=== PATIENT | female | born 1985 | race Caucasian/White ===

== ENCOUNTER 2016-11-14 23:59 | Inpatient (IN) | payer OTHER ==
[2016-11-15] MEDS ORDERED: Sodium Chloride 0.9% 10 ML Syringe FLUSH PRN ×2 (00:06→00:09)
[2016-11-15] MEDS ORDERED: Ampicillin 2 GM in Sodium Chloride 0.9% 100 ML IV ONE (00:06)
[2016-11-15] MEDS ORDERED: Lactated Ringers 1,000 ML IV SCH (00:15)
[2016-11-15] MEDS: Scopolamine 1.5 MG Transdermal Patch TOP ONE ×2 (01:43→01:53)
[2016-11-15] MEDS ORDERED: ePHEDrine 50 MG/ML SDV ONE (01:56)
[2016-11-15] MEDS ORDERED: Morphine PF 10 MG/10 ML SDV ONE (01:56)
[2016-11-15] MEDS ORDERED: fentaNYL 100 MCG/2 ML SDV ITHECAL ONE (01:56)
[2016-11-15] MEDS ORDERED: Oxytocin 10 Units/1 ML SDV IM ONE (02:52)
[2016-11-15] MEDS ORDERED: Naltrexone 50 MG Tab PO PRN (03:45)
[2016-11-15] MEDS ORDERED: Promethazine 25 MG/ML SDV IV PRN (03:45)
[2016-11-15] MEDS ORDERED: Metoclopramide 10 MG/2 ML SDV IVPUSH PRN (03:45)
[2016-11-15] MEDS ORDERED: Scopolamine 1.5 MG Transdermal Patch TOP SCH (03:45)
[2016-11-15] MEDS ORDERED: ePHEDrine 50 MG/ML SDV IVPUSH PRN (03:45)
[2016-11-15] MEDS ORDERED: hydrOXYzine HCl 50 MG/ML SDV IM PRN ×2 (03:45)
[2016-11-15] MEDS ORDERED: Nalbuphine 10 MG/1 ML Vial IVPUSH PRN (03:45)
[2016-11-15] MEDS ORDERED: Naloxone 0.4 MG in Sodium Chloride 0.9% 100 ML IV PRN (03:45)
[2016-11-15] MEDS ORDERED: Naloxone 0.4 MG/ML SDV IVPUSH PRN ×2 (03:45)
[2016-11-15] MEDS ORDERED: diphenhydrAMINE 50 MG/ML SDV IVPUSH PRN ×2 (03:45)
[2016-11-15] MEDS ORDERED: Naltrexone 50 MG Tab PO SCH (03:45)
[2016-11-15] MEDS ORDERED: Ondansetron 4 MG/2 ML SDV IVPUSH PRN (03:47)
[2016-11-15] MEDS ORDERED: Naltrexone 50 MG Tab ONE (03:48)
[2016-11-15] MEDS: Ibuprofen 600 MG Tab PO PRN ×2 (03:58→18:29)
[2016-11-15] MEDS: Levothyroxine 125 MCG Tab PO SCH (09:30)
[2016-11-16] MEDS: Levothyroxine 125 MCG Tab PO SCH (06:14)
[2016-11-16] MEDS: Ibuprofen 600 MG Tab PO PRN (09:55)
[2016-11-16 10:32] VITALS: BP 112/80
--- NOTE | 2016-11-16 11:28 | DISCH ---
DISCHARGE DATE: 11/16/2016 HOSPITAL COURSE: Falguni Dumont is a 30-year-old 4, para 4, female, 1 day . Up, ambulating, and doing well. Minimal perineal discomfort. Cramps and discomfort with nursing only. Not lightheaded, not woozy, and without complaint. PHYSICAL EXAMINATION: U-2 tone satisfactory, perineum intact. ASSESSMENT: day #1, no problem. PLAN: Discharge home with lengthy instructions, vitamins, adequate nutrition and well-being, ibuprofen or Tylenol for pain. Six-week followup. /[id number] ADI/MATT JIMENEZ
--- NOTE | 2016-11-18 10:32 | DEL ---
DATE OF DELIVERY: 11/15/2016 HISTORY OF PRESENT ILLNESS: Falguni Dumont is a 30-year-old, 4, para 3-0-0-3, female, EDC of 11/24/2016, who was admitted to [facility] with spontaneous rupture of membranes about 2200 hours, on the evening of admission. Clear fluid. Baby has been active. Contractions were present prior to onset of ruptured membranes. Of note, group B rectovaginal culture positive per testing. It has otherwise been an uneventful satisfactory with adequate dates. On admission, she was found to be posterior cervix, thought to be 2 cm, early active labor, spontaneous rupture of membranes were obvious, and satisfactory well being, category 1 tracing. Intravenous ampicillin was started per protocol, 2 grams IV, fluids were maintained. Contractions began in earnest. At 4 to 5 cm, she was found to be in active labor, requested regional anesthesia. Anesthesia provided an intrathecal with good analgesic benefit. She quickly went to complete, and I was summoned to attend. Over the course of about half an hour, second stage of labor progressed well, and she was found to be in ROBYN presentation. Maternal effort was limited by intrathecal, but improved over the course of about 10 quality pushes. Delivered in ROBYN presentation without difficulty. Nares and oropharynx were cleared. Nuchal cord was present and reduced without difficulty. The child was delivered without incident or shoulder dystocia, placed on mom's tummy for warming and resuscitation. Good tone, good color, good activity, and good cry. Cord was held until no palpable pulses were noted. It was clamped by dad in attendance. Cord blood was stripped toward the baby. Three-cord vessel was identified, there was spontaneous placental separation, three-cord vessel was intact. Uterine tone was maintained by massage and 10 units of intramuscular Pitocin. The perineum was inspected. There were no perineal tears and no periurethral or suzy-clitoral tears. Bleeding was minimal, probably 75 mL. The patient tolerated the procedure well. ASSESSMENT: 1. Term intrauterine . 2. Normal spontaneous vaginal delivery. 3. Intrathecal analgesia. 4. A 7 pounds 6 ounces male , scores 9 and 9. 5. No perineal tear or abrasions or lacerations. 6. Planned nursing. PLAN: Routine course. Expect no problems or concerns. /[id number] ADI/MATT JIMENEZ
== END 2016-11-16 11:15 | disposition home or self-care (01) | DRG 775 ==
LOC: FB.OBCHECK 23:59 → FB.OB 23:59 → FB.OBCHECK 11-15 → FB.OB 11-15 → UNDOADMIN 11-15 → FB.OB 11-15 → FB.OBCHECK 11-15 02:45 → FB.OB 11-15 02:46 → UNDOADMIN 11-15 02:46 → UNDODISIN 11-16 11:15
PROVIDERS: ADMIT Family Medicine; ATTEND Family Medicine
PROC: 10E0XZZ Delivery of Products of Conception, External Approach (ICD-10-PCS; principal; 2016-11-15)
PROC: 00HU33Z Insertion of Infusion Device into Spinal Canal, Percutaneous Approach (ICD-10-PCS; 2016-11-15)
DX: O69.81X0 Labor and delivery complicated by cord around neck, without compression, not applicable or unspecified (principal); O99.824 Streptococcus B carrier state complicating childbirth; Z3A.38 38 weeks gestation of pregnancy; Z37.0 Single live birth
CPT/HCPCS: A9270-GY; J0290; J2270; J2590; J3010; J7030; J7050; J7120

== ENCOUNTER 2023-08-19 15:03 | Inpatient (IN) | payer OTHER ==
[2023-08-19] MEDS ORDERED: Polyethylene Glycol 3350 Powder 17 GM Packet PO PRN (15:38)
[2023-08-19] MEDS ORDERED: Ondansetron 4 MG Tab.DIS PO PRN (15:38)
[2023-08-19] MEDS ORDERED: Morphine 2 MG/ML SYRINGE IVPUSH PRN (15:38)
[2023-08-19] MEDS: Sodium Chloride 0.9% 1,000 ML IV SCH (16:15)
[2023-08-19] MEDS: Sodium Chloride 0.9% 10 ML Syringe FLUSH PRN (16:15)
[2023-08-19] MEDS: Ketorolac 30 MG/ML SDV IVPUSH PRN (16:21)
[2023-08-19] MEDS: cefTRIAXone 1 GM Vial IVPUSH SCH (16:28)
[2023-08-19] MEDS: Acetaminophen 325 MG Tab PO PRN (21:05)
[2023-08-20 06:17] LABS: BASOPHILS PERCENT AUTO 0.4 % (0.2-1.5); EOSINOPHILS PERCENT AUTO 0.1 % (0.6-8.1); HEMATOCRIT 36.3 % (34.2-48.2); HEMOGLOBIN 12.2 g/dL (11.4-15.5); LYMPHOCYTES ABSOLUTE AUTO 0.8 x10-3/uL (1.0-4.4); LYMPHOCYTES PERCENT AUTO 10.9 % (18.4-52.1); MEAN CORPUSCULAR HEMOGLOBIN 29.9 pg (23.9-33.9); MEAN CORPUSCULAR HGB CONC 33.5 g/dL (31.9-34.8); MEAN CORPUSCULAR VOLUME 89.4 fL (76.7-100.5); MEAN PLATELET VOLUME 8.7 fL (7.1-12.4); MONOCYTES ABSOLUTE AUTO 0.5 x10-3/uL (0.3-1.0); MONOCYTES PERCENT AUTO 7.1 % (4.4-15.7); NEUTROPHILS ABSOLUTE AUTO 5.8 x10-3/uL (1.5-6.3); NEUTROPHILS PERCENT AUTO 81.5 % (30.8-76.2); PLATELET COUNT,PLT 136 x10(3)uL (151-488); RED BLOOD CELL COUNT 4.06 x10(6)uL (3.60-5.20); RED CELL DISTRIBUTION WIDTH 13.7 % (12.3-16.5); WHITE BLOOD CELL COUNT,WBC 7.1 x10-3/uL (3.0-10.3)
[2023-08-20 06:27] LABS: A/G RATIO 0.8; ALANINE AMINOTRANSFERASE,ALT 15 U/L (12-36); ALBUMIN 2.8 g/dL (3.5-5.2); ALKALINE PHOSPHATASE 68 IU/L (56-112); ASPARTATE AMNIOTRANSFERASE,AST 10 IU/L (5-25); BILIRUBIN TOTAL 0.4 mg/dL (0.1-1.3); BLOOD UREA NITROGEN,BUN 10 mg/dL (7-18); CALCIUM 8.1 mg/dL (8.6-10.2); CARBON DIOXIDE,CO2 22 mmol/L (21-32); CHLORIDE,CL 104 mmol/L (100-110); EST CRCL DRUG DOSING (CG) 69.98 mL/min; ESTIMATED GFR 75 mL/min (>60); GLUCOSE RANDOM 96 mg/dL (80-116); MAGNESIUM 2.1 mg/dL (1.8-2.5); POTASSIUM,K 3.8 mmol/L (3.5-5.3); PROTEIN TOTAL,TP 6.5 g/dL (6.0-8.0); SODIUM,NA 136 mmol/L (135-145)
[2023-08-20] MEDS: Levothyroxine 100 MCG Tab PO SCH (08:37)
[2023-08-20] MEDS: Sodium Chloride 0.9% 1,000 ML IV ONE (08:39)
[2023-08-20] MEDS: cefTRIAXone 1 GM Vial IVPUSH SCH (12:24)
[2023-08-20 14:02] VITALS: BP 114/84; PULSE 110
[2023-08-21] MEDS ORDERED: Levothyroxine 100 MCG Tab PO SCH (07:30)
== END 2023-08-20 14:04 | disposition home or self-care (01) | DRG 690 ==
LOC: FB.MS 15:38
PROVIDERS: ADMIT Family Medicine; ATTEND Family Medicine
DX: N12 Tubulo-interstitial nephritis, not specified as acute or chronic (principal); N17.9 Acute kidney failure, unspecified; E03.9 Hypothyroidism, unspecified; Z79.890 Hormone replacement therapy; Z79.899 Other long term (current) drug therapy
CPT/HCPCS: 36415; 80053; 83735; 85025; 99222; 99238; A9270-GY; J0696; J1885; J3490; J7030